=== PATIENT | male | born 1985 | race African-American/Black ===

== ENCOUNTER 2022-12-12 12:06 | Emergency (ER) | payer MEDICAID, OTHER ==
[~2022-12-12] VITALS: Ht 175.3 cm; Wt 86.0 kg
[2022-12-12 12:17] VITALS: O2SAT 98
[2022-12-12] MEDS ORDERED: OXYCODONE HCL 5MG TABLET PO ONE (12:45)
[2022-12-12 15:58] VITALS: BP 115/76; PULSE 85; RESP 19; TEMP 98
== END 2022-12-12 16:29 ==
LOC: ER 12:06
DX: S62.609A Fracture of unspecified phalanx of unspecified finger, initial encounter for closed fracture (principal); Y04.0XXA Assault by unarmed brawl or fight, initial encounter; Y93.89 Activity, other specified; Y92.89 Other specified places as the place of occurrence of the external cause; Y99.8 Other external cause status
CPT/HCPCS: 73120; 73600; 73620; 29130; 99284; Z7610 ×2

== ENCOUNTER 2022-12-30 11:49 | Emergency (ER) | payer MEDICAID, OTHER ==
[~2022-12-30] VITALS: Ht 172.7 cm; Wt 95.3 kg
[2022-12-30 12:00] VITALS: BP 131/76; PULSE 93; RESP 16; TEMP 98.4; O2SAT 100
[2022-12-30] MEDS ORDERED: TETRACAINE 0.5% OPHTH DROPS 4ML BOTHEYE ONE (12:15)
[2022-12-30] MEDS ORDERED: FLUORESCEIN SODIUM 1MG/STRIP BOTHEYE ONE (12:15)
[2022-12-30 12:24] LABS: CHLORIDE 105 mEq/L (98-107); INDEX HEMOLYSI 1 (1-3); INDEX ICTERIC 1 (1-4); INDEX LIPEMIC 1 (1-3); POTASSIUM 3.7 mEq/L (3.5-5.1); SODIUM 136 mEq/L (136-145)
[2022-12-30 12:30] LABS: BASOPHILS % 0.5 % (0.0-2.0); EOSINOPHILS % 0.5 % (0.0-5.0); HEMATOCRIT. 42.8 % (42.0-52.0); HEMOGLOBIN. 14.5 g/dL (14.0-18.0); LYMPHOCYTES % 16.3 % (20.0-50.0); MEAN CORPUSCULAR HEMOGLOBIN 29.1 pg (28.0-32.0); MEAN CORPUSCULAR HGB CONC 33.7 g/dL (31.0-37.0); MEAN CORPUSCULAR VOLUME 86.3 fL (80.0-94.0); NEUTROPHILS % 74.7 % (40.0-76.0); RED BLOOD CELL COUNT 4.96 mill/uL (4.7-6.1); RED CELL DISTRIBUTION WIDTH 15.9 % (11.6-14.6); WHITE BLOOD COUNT 5.3 x1000/uL (4.5-11.0)
[2022-12-30 12:34] LABS: ALANINE AMINOTRANSFERASE 22 IU/L (13-61); ALBUMIN 3.3 g/dL (3.4-5.0); ASPARTATE AMINOTRANSFERASE 18 IU/L (15-37); BILIRUBIN TOTAL 0.3 mg/dL (0.1-1.0); CALCIUM 8.4 mg/dL (8.5-10.1); CARBON DIOXIDE 28 mEq/L (21-32); CREATININE 0.9 mg/dL (0.6-1.3); GLUCOSE 133 mg/dL (70-105); PROTEIN TOTAL 8.5 g/dL (6.0-8.3); TROPONIN I HIGH SENSITIVITY 7 ng/L (<78); UREA NITROGEN BLOOD 7 mg/dL (7-21)
[2022-12-30 12:35] LABS: DIFFERENTIAL COMMENT 1
[2022-12-30 12:52] LABS: PLATELET 386 x1000/uL (130-400)
[2022-12-30] MEDS ORDERED: CIPR2.5D20 EACHEYE (15:10)
== END 2022-12-30 15:58 | disposition home or self-care (01) ==
LOC: ER 15:42
DX: T15.11XA Foreign body in conjunctival sac, right eye, initial encounter (principal); T15.12XA Foreign body in conjunctival sac, left eye, initial encounter; H10.9 Unspecified conjunctivitis; M79.10 Myalgia, unspecified site; H16.8 Other keratitis; X58.XXXA Exposure to other specified factors, initial encounter; Y93.89 Activity, other specified; Y92.89 Other specified places as the place of occurrence of the external cause
CPT/HCPCS: 36415; 65220; 71045; 80053; 84484; 85025; 99284

== ENCOUNTER 2023-08-28 21:04 | Emergency (ER) | payer SELFPAY ==
[~2023-08-28] VITALS: Ht 175.3 cm; Wt 95.0 kg
[~2023-08-28 21:04] MED LIST: CIPR2.5D20 EACHEYE
[2023-08-28 21:30] VITALS: BP 137/69; TEMP 97.9; O2SAT 100
[2023-08-29 00:32] LABS: HEMATOCRIT. 38.7 % (42.0-52.0); MEAN CORPUSCULAR HEMOGLOBIN 28.5 pg (28.0-32.0); MEAN CORPUSCULAR HGB CONC 33.6 g/dL (31.0-37.0); MEAN CORPUSCULAR VOLUME 84.8 fL (80.0-94.0); MEAN PLATELET VOLUME 7.2 fl (7.4-10.4); PLATELET 403 x1000/uL (130-400); RED BLOOD CELL COUNT 4.56 mill/uL (4.7-6.1); RED CELL DISTRIBUTION WIDTH 15.7 % (11.6-14.6); WHITE BLOOD COUNT 3.9 x1000/uL (4.5-11.0)
[2023-08-29 00:35] LABS: CHLORIDE 106 mEq/L (98-107); POTASSIUM 3.8 mEq/L (3.5-5.1); SODIUM 136 mEq/L (136-145)
[2023-08-29 00:36] LABS: CALCIUM 8.9 mg/dL (8.7-10.4); CARBON DIOXIDE 28 mEq/L (21-32)
[2023-08-29 00:41] LABS: CREATININE 0.8 mg/dL (0.6-1.3); GLUCOSE 105 mg/dL (70-105); UREA NITROGEN BLOOD 6 mg/dL (9-23)
[2023-08-29 00:42] LABS: DIFFERENTIAL COMMENT 1
[2023-08-29 01:16] LABS: ATYPICAL LYMPHOCYTES 7
[2023-08-29 01:17] LABS: OVALOCYTES 1+; PLATELET ESTIMATE NORMAL; TEAR DROP CELLS 2+
[2023-08-29] MEDS ORDERED: DOXY-244 MT (01:29)
[2023-08-29] MEDS ORDERED: CEPH500T MT (01:29)
[2023-08-29 01:33] VITALS: PULSE 90; RESP 16
== END 2023-08-29 03:00 | disposition home or self-care (01) ==
LOC: ER 21:04
DX: L03.116 Cellulitis of left lower limb (principal); M79.89 Other specified soft tissue disorders; Z98.890 Other specified postprocedural states
CPT/HCPCS: 36415; 73630; 80048; 83605; 85025; 99284

== ENCOUNTER 2023-12-23 18:52 | Emergency (ER) | payer SELFPAY ==
[~2023-12-23] VITALS: Ht 175.3 cm; Wt 96.0 kg
[~2023-12-23 18:52] MED LIST changes: +CEPH500T MT; +DOXY-244 MT
[2023-12-23 20:45] LABS: CHLORIDE 107 mEq/L (98-107); HEMATOCRIT. 40.1 % (42.0-52.0); HEMOGLOBIN. 13.7 g/dL (14.0-18.0); MEAN CORPUSCULAR HEMOGLOBIN 29.7 pg (28.0-32.0); MEAN CORPUSCULAR HGB CONC 34.3 g/dL (31.0-37.0); MEAN CORPUSCULAR VOLUME 86.8 fL (80.0-94.0); MEAN PLATELET VOLUME 7.3 fl (7.4-10.4); PLATELET 417 x1000/uL (130-400); POTASSIUM 3.5 mEq/L (3.5-5.1); RED BLOOD CELL COUNT 4.62 mill/uL (4.7-6.1); RED CELL DISTRIBUTION WIDTH 15.6 % (11.6-14.6); SODIUM 137 mEq/L (136-145); WHITE BLOOD COUNT 3.6 x1000/uL (4.5-11.0)
[2023-12-23 20:46] LABS: CALCIUM 9.4 mg/dL (8.7-10.4); CARBON DIOXIDE 26 mEq/L (21-32)
[2023-12-23] MEDS: IPRATROPIUM BROMIDE (0.02%) 0.5MG/2.5ML NEB HHN STA (20:48)
[2023-12-23] MEDS: ALBUTEROL (0.083%) 2.5MG/3ML NEB HHN STA (20:48)
[2023-12-23 20:49] VITALS: PULSE 74; RESP 20; O2SAT 99
[2023-12-23 20:49] LABS: DIFFERENTIAL COMMENT 1
[2023-12-23 20:51] LABS: CREATININE 0.9 mg/dL (0.6-1.3); GLUCOSE 90 mg/dL (70-105); INR 0.9; PARTIAL THROMBOPLASTIN TIME 24.7 sec (23.4-31.0); PROTHROMBIN TIME 10.5 sec (9.6-11.0); UREA NITROGEN BLOOD 7 mg/dL (9-23)
[2023-12-23 20:53] LABS: ALANINE AMINOTRANSFERASE 17 IU/L (10-49); ALBUMIN 3.8 g/dL (3.2-4.8); ASPARTATE AMINOTRANSFERASE 30 IU/L (<34); BILIRUBIN TOTAL 0.3 mg/dL (0.1-1.0); PROTEIN TOTAL 8.8 g/dL (6.0-8.3)
[2023-12-23 20:55] LABS: BILIRUBIN DIRECT < 0.1 mg/dL (<=3.0); ETHANOL BLOOD < 10 mg/dL (<10); TROPONIN I HIGH SENSITIVITY < 4 ng/L (3.0-53)
[2023-12-23 21:11] LABS: ANISOCYTOSIS 1+; ATYPICAL LYMPHOCYTES 2; PLATELET ESTIMATE SLIGHTLY INCREASED
[2023-12-23 22:40] VITALS: BP 132/77; PULSE 77; RESP 18; TEMP 36.66960; O2SAT 97
== END 2023-12-23 22:49 | disposition home or self-care (01) ==
LOC: ER 18:52
DX: R05.9 Cough, unspecified (principal); R91.1 Solitary pulmonary nodule; F17.200 Nicotine dependence, unspecified, uncomplicated; Z20.822 Contact with and (suspected) exposure to COVID-19
CPT/HCPCS: 80076; 80048; 80320; 83880; 85025; 85610; 85730; 87040; 84484; 36415; 71045; 94640; 99284; 87426; Z7610 ×3; G0480

== ENCOUNTER 2024-06-08 18:17 | Emergency (ER) | payer MEDICAID ==
[~2024-06-08] VITALS: Ht 175.3 cm; Wt 95.5 kg
[2024-06-08 18:56] VITALS: O2SAT 99
[2024-06-08] MEDS ORDERED: IBUP-2030 MT (20:35)
[2024-06-08] MEDS ORDERED: CYCL5TAB3 MT (20:35)
[2024-06-08] MEDS: CYCLOBENZAPRINE 10MG TABLET PO ONE (20:45)
[2024-06-08] MEDS: IBUPROFEN 600MG TABLET PO ONE (20:45)
[2024-06-08 21:00] VITALS: BP 130/80; PULSE 90; RESP 16; TEMP 36.7; O2SAT 99
== END 2024-06-08 21:00 | disposition home or self-care (01) ==
LOC: ER 18:17
DX: S43.401A Unspecified sprain of right shoulder joint, initial encounter (principal); M79.18 Myalgia, other site; M54.2 Cervicalgia; X58.XXXA Exposure to other specified factors, initial encounter; Y93.89 Activity, other specified; Y92.89 Other specified places as the place of occurrence of the external cause; Y99.8 Other external cause status
CPT/HCPCS: 99283